=== PATIENT | male | born 1975 | race Two or more races ===

== ENCOUNTER 2018-04-06 01:56 | Emergency (ER) | payer MEDICAID ==
[~2018-04-06] VITALS: Ht 165.1 cm; Wt 81.6 kg
[2018-04-06] MEDS ORDERED: cloNIDine HCL 0.1 MG TAB PO ONE (02:30)
[2018-04-06 03:29] VITALS: BP 219/141
== END 2018-04-06 03:35 | disposition left against medical advice (07) ==
LOC: ER 02:01
DX: R06.02 Shortness of breath (principal); Z53.21 Procedure and treatment not carried out due to patient leaving prior to being seen by health care provider
CPT/HCPCS: 71045; 93005